=== PATIENT | female | born 1970 | race Caucasian/White ===

== ENCOUNTER 2019-04-05 15:33 | Emergency (ER) | payer OTHER | END 2019-04-05 19:20 | disposition home or self-care (01) | LOC: FTE 15:33 | DX: S30.0XXA Contusion of lower back and pelvis, initial encounter (principal); K64.9 Unspecified hemorrhoids; W07.XXXA Fall from chair, initial encounter; Y92.9 Unspecified place or not applicable | CPT/HCPCS: 72220; 81025; 99283-25 ==